=== PATIENT | male | born 1955 | race Caucasian/White ===

== ENCOUNTER → 2024-07-20 09:53 | Outpatient (REF) | payer OTHER, SELFPAY | LOC: RAD 09:53 | PROVIDERS: ATTENDING PHYSICIAN Family Medicine | DX: M25.561 Pain in right knee (principal) | CPT/HCPCS: 73564 ==

== ENCOUNTER → 2024-08-01 12:41 | Outpatient (REF) | payer OTHER, SELFPAY | LOC: RAD 12:41 | PROVIDERS: ATTENDING PHYSICIAN Nurse Practitioner Adult Health; FAMILY PHYSICIAN Family Medicine | DX: R05.2 Subacute cough (principal); R06.02 Shortness of breath | CPT/HCPCS: 71046 ==

== ENCOUNTER → 2024-08-10 14:34 | Outpatient (REF) | payer OTHER, SELFPAY | LOC: HWRCS 14:34 | PROVIDERS: ATTENDING PHYSICIAN Internal Medicine; FAMILY PHYSICIAN Family Medicine | DX: R06.09 Other forms of dyspnea (principal) | CPT/HCPCS: 93306 ==

== ENCOUNTER → 2024-08-31 09:22 | Outpatient (REF) | payer OTHER, SELFPAY | LOC: HWRAD 09:22 | PROVIDERS: ATTENDING PHYSICIAN Internal Medicine Critical Care Medicine; FAMILY PHYSICIAN Family Medicine | DX: J98.4 Other disorders of lung (principal) | CPT/HCPCS: 71250 ==

== ENCOUNTER → 2024-10-07 06:17 | Day surgery (SDC) | payer OTHER, SELFPAY | LOC: GI 06:17 | PROVIDERS: ATTENDING PHYSICIAN Specialist | DX: Z12.11 Encounter for screening for malignant neoplasm of colon (principal); D12.0 Benign neoplasm of cecum; K63.5 Polyp of colon; Z86.0101 Personal history of adenomatous and serrated colon polyps | CPT/HCPCS: 45385; 45380; 88305 ==

== ENCOUNTER 2024-12-15 08:41 | Emergency (ER) | payer OTHER, SELFPAY ==
[2024-12-15] VITALS (12 sets, daily range): BP systolic 109–146; BP diastolic 67–84; BMI 34.4
--- NOTE | 2024-12-15 09:20 | ED.GENMED ---
History of Present Illness
General
Chief Complaint: Heart Rate Problem
Source: patient
Exam Limitations: none
Time Seen by Provider: 12/15/24 09:04
History of Present Illness
History of Present Illness:
69-year-old male feels he went into atrial fibrillation this morning at about 6 AM. Some mild heart racing pounding. Some mild shortness of breath with exertion. Had slightly rapid heart rate last night but did not feel like he was in atrial
fibrillation. Patient is faithful with his Eliquis. Minimal symptoms at rest.
Past History
Past History
ED Past Medical History: Arrthythmia (A-fib RVR), Asthma, CAD (s/p PTCA with stent in 2010), HTN, Hypercholesterolemia and Other (Migraine headaches)
ED Past Surgical History: Cardiac (PTCA with stent 2010)
Social History
Tobacco: Non-smoker
Alcohol: Occasional
Personal:
Living: with family
Employment: Employed
Family History
Family History: Other (Noncontributory)
Review of Systems
Review of Systems
All Other Systems: Not applicable
Cardiac: Denies chest pain or syncope
ABD/GI: Denies bloody stools or black stools
Phy Exam
Physical Exam
Physical Exam:
GENERAL: Alert and oriented in no apparent distress
EYE: Orbits normal.
NECK: Supple
ENT: Pharynx without erythema
CARDIAC: Mildly irregular no murmur
LUNGS: Clear breath sounds,normal
ABDOMEN: Soft, without focal tenderness or distention
NEUROLOGICAL: Alert and oriented , grossly non-focal
SKIN: Warm and dry, no rash or lesion, no discoloration, skin intact.
MUSCULOSKELETAL: No edema,no deformity.Good color
PSYCH: Normal and appropriate interaction.
Course
Orders/Labs/Results
Orders:
Orders
12/15/24 08:43
EKG [Electrocardiogram (*1)] Urgent
Reason for Study: Chest Pain
EKG- Treatment ONCE
12/15/24 09:57
Propofol [Diprivan] 20 ml .ROUTE .STK-MED
12/15/24 09:58
Cardiac Monitoring- Treatment ONCE
IV Insert/Care/Rem.- Treatment PRN
12/15/24 10:02
Basic Metabolic Panel Urgent
Complete Blood Count/With Diff Urgent
12/15/24 10:37
Electrocardiogram (*1) Urgent
Reason for Study: Atrial Fibrillation
EKG- Treatment ONCE
Abnormal Lab Results
12/15/24
10:02
Carbon Dioxide 32 H mmol/L
(22-30)
Glucose 109 H mg/dl
(70-99)
12/15/24 10:02
12/15/24 10:02
Vital Signs
Initial and Last Documented VS:
Initial Vital Signs
Temp Pulse Resp BP Pulse Ox
98.1 F 100 16 143/78 97
12/15/24 08:48 12/15/24 08:48 12/15/24 08:48 12/15/24 08:48 12/15/24 08:48
Last Documented Vital Signs
Temp Pulse Resp BP Pulse Ox
97.8 F 62 16 109/73 96
12/15/24 11:15 12/15/24 11:45 12/15/24 11:45 12/15/24 11:30 12/15/24 11:45
Procedures
Moderate Sedation
ASA Risk Score: Class II
Chart and allergies reviewed: Yes
Consent for anesthesia obtained: Yes
Time out completed (validating right patient & procedure): Yes
Moderate Sedation Start Time(when first medication is given): 13:32
History of difficult intubation: No
Airway free of obstruction: Yes
Patient has a gag reflex: Yes
Patient is able to open mouth: Yes
Patient has no dentures: Yes
Patient has no loose teeth: Yes
Medication administered by Provider during Moderate Sedation: IV Propofol (mg)
Total dose administered: 50
Time drug administered: 13:34
Moderate Sedation Procedure End Time: 13:45
Cardioversion
Indication:: Afib
Performed by:: me
Energy Used: 200 joules
Number of attempts: 1
Successful?: Yes
ASA Risk Score: Class II
Any reaction or bad outcome to prior sedation/anesthesia?: No history of a reaction
Sedation level to be attained: moderate
Chart and allergies reviewed: Yes
Patient reassessed prior to sedation: Yes
Time out completed at (validating right patient & procedure): 13:32
History of difficult intubation: No
Airway free of obstruction: Yes
Patient has a gag reflex: Yes
Patient is able to open mouth: Yes
Patient has no dentures: Yes
Patient has no loose teeth: Yes
Medication administered by Provider during Moderate Sedation: IV Propofol (mg)
Total dose administered: 50
Time drug administered: 13:34
Start Time: 13:32
Stop Time: 13:45
MDM/Problems Addressed
Differential Diagnosis Includes:
Patient in a rate controlled atrial fibrillation. Medically stable. Discussed options of continued rate control anticoagulation and follow-up versus cardioversion in the ER. Patient is faithful with his medication. Also confident this has been
less than 48 hours. By history is less than 48 hours. His Apple Watch also confirmed this started this morning. Will let cardiology know. Patient likely will elect CV
*Pulse Oximetry
Patient hypoxic: no
*EKG
Interpretation: abnormal
Comparison EKG: changes noted
Heart Rate: 84
Rate: normal
Rhythm: a-fib
[place]: normal axis
Interval: normal interval
QRS Pattern: normal QRS
Ischemia: non-specific ST changes
*Ammonium Hydroxide Operator Interpretation
Rate: normal
Interpretation: abnormal
Heart Rate: 85
Rhythm: a-fib
*Critical Care Note
Total Time (30-74mins, 75-104mins- exclusive of procedures): 15
Data Reviewed
Review of Other/Old Records Reveals: Labs, Records and Radiology Studies
ED Attending Note
-
Portions of this chart may have been created with voice recognition software.� Occasional wrong word or��sound alike� substitutions may have occurred due to the inherent limitations of voice recognition software.
Discharge Plan
Departure
Patient Disposition: Home (Routine Discharge)
Date of Disposition: 12/15/24
Time of Disposition: 12:09
Patient with high blood pressure during this ER visit?: Yes
Discharge Problem:
Paroxysmal atrial fibrillation
Instructions: Atrial Fibrillation (DC), MODERATE SEDATION ADULT
Prescriptions:
No Action
[id number] [Fiorinal-Codeine #3] 1 EACH capsule
1 ea PO Q4HPRN PRN (Reason: migraines)
pantoprazole 40 MG tablet,delayed release (DR/EC)
40 mg PO DAILY
nitroglycerin 0.4 MG tablet, sublingual
0.4 mg sublingual [id number] PRN (Reason: CP)
albuterol sulfate 1 PUFF HFA aerosol inhaler
2 puff inhalation R Q4HPRN PRN (Reason: osb)
atorvastatin 40 MG tablet
80 mg PO DAILY
metoprolol succinate 50 MG tablet extended release 24 hr
50 mg PO DAILY
aspirin 81 MG tablet,delayed release (DR/EC)
81 mg PO DAILY
acetaminophen [Tylenol Extra Strength] 500 MG tablet
1,000 mg PO HSPRN PRN (Reason: back pain)
hydrochlorothiazide 25 MG tablet
25 mg PO DAILY
valacyclovir 1,000 MG tablet
1,000 mg PO [id number] PRN (Reason: cold sores)
ascorbic acid (vitamin C) [Vitamin C] 500 MG tablet
500 mg PO DAILY
losartan 25 MG tablet
25 mg PO DAILY
zaleplon 5 MG capsule
5 mg PO HSPRN PRN (Reason: sleep)
cholecalciferol (vitamin D3) 2,000 UNITS tablet
3,000 units PO DAILY
apixaban [Eliquis] 5 MG tablet
5 mg PO BID
tobramycin-dexamethasone [TobraDex] 1 APPLIC ointment
1 applic OPHTHALMIC PRN PRN (Reason: eyes)
sulfacetamide sodium-sulfur [Plexion] 57 GM cream
1 applic TP PRN PRN (Reason: psoriasis )
fluticasone furoate [Arnuity Ellipta] 100 MCG blister with device
100 mcg IH DAILY
Clindamycin
1 applic APPLIC DAILYPRN PRN (Reason: psoriasis )
Referrals:
Yury Lindo MD [Family Provider] - Follow up in 2-3 days
Activity Restrictions/Additional Instructions:
Follow-up closely with cardiology
Interventions
Interventions:
*Risk Screen - Suicide Last Done: 12/15/24 08:48
*General Assessment Last Done: 12/15/24 08:48
*Neglect/Abuse Screening Last Done: 12/15/24 08:48
ED- Fall Risk Assessment Last Done: 12/15/24 09:22
*ED COVID-19 Vaccine History Last Done: 12/15/24 08:48
*Nursing Disposition Last Done: 12/15/24 12:18
ED- Cardiac Assessment Last Done: 12/15/24 09:22
ED- Pulmonary Assessment Last Done: 12/15/24 09:22
Discharge Date and Time
Discharge Date/Time: 12/15/24 12:19
Print Language: GIBRALTARIAN
[2024-12-15 10:24] LABS: Blood Urea Nitrogen 17 mg/dl (9-20); Calcium 9.5 mg/dl (8.4-10.2); Carbon Dioxide 32 mmol/L (22-30); Chloride 101 mmol/L (98-107); Estimated Creatinine Clearance 85 ml/min; Glucose 109 mg/dl (70-99); Potassium 3.5 mmol/L (3.5-5.1); Sodium 139 mmol/L (135-145); eGFR > 60.00
[2024-12-15 10:25] LABS: % Basophils 0.4 % (0-2); % Eosinophils 3.1 % (0-6); % Immature Granulocytes 0.3 % (0-0.5); % Lymphocytes 31.1 % (20.5-51.1); % Monocytes 6.7 % (1.7-9.3); % Neutrophils 58.4 % (42.2-75.2); Absolute Eosinophils 0.3 10^3/uL (0-0.7); Absolute Lymphocytes 2.8 10^3/uL (1.2-3.4); Absolute Monocytes 0.6 10^3/uL (0.1-0.6); Absolute Neutrophils 5.2 10^3/uL (1.4-6.5); Hematocrit 44.4 % (39.0-52.0); Hemoglobin 14.8 g/dL (13.0-18.0); Mean Corp Hgb Conc. 33.3 g/dL (33.0-37.0); Mean Corpuscular Hgb 30.6 pg (27.0-31.0); Mean Corpuscular Volume 91.7 fL (80.0-94.0); Mean Platelet Volume 9.4 fL (7.4-10.4); Nucleated Red Blood Cells % 0 % (-); Platelet Count 292 10^3/uL (130-400); Red Blood Cell Count 4.84 10^6/uL (4.70-6.10); Red Cell Dist. Width 12.7 % (11.5-14.5); White Blood Cell Count 8.9 10^3/uL (4.8-10.8)
== END 2024-12-15 12:19 | disposition home or self-care (01) ==
LOC: EMR 08:41
PROVIDERS: EMERGENCY PHYSICIAN Emergency Medicine; FAMILY PHYSICIAN Family Medicine
DX: I48.0 Paroxysmal atrial fibrillation (principal); J45.909 Unspecified asthma, uncomplicated; I25.10 Atherosclerotic heart disease of native coronary artery without angina pectoris; I10 Essential (primary) hypertension; E78.00 Pure hypercholesterolemia, unspecified; Z79.01 Long term (current) use of anticoagulants; Z95.5 Presence of coronary angioplasty implant and graft
CPT/HCPCS: 99284; 92960; 80048; 85025; 93005

== ENCOUNTER 2025-01-19 05:54 | Day surgery (SDC) | payer OTHER, SELFPAY ==
[2025-01-17 13:13] VITALS: BMI 33.8
[2025-01-17 13:46] LABS: % Basophils 0.5 % (0-2); % Eosinophils 4.5 % (0-6); % Immature Granulocytes 0.1 % (0-0.5); % Lymphocytes 33.3 % (20.5-51.1); % Monocytes 6.2 % (1.7-9.3); % Neutrophils 55.4 % (42.2-75.2); Absolute Eosinophils 0.3 10^3/uL (0-0.7); Absolute Lymphocytes 2.5 10^3/uL (1.2-3.4); Absolute Monocytes 0.5 10^3/uL (0.1-0.6); Absolute Neutrophils 4.1 10^3/uL (1.4-6.5); Hematocrit 43.5 % (39.0-52.0); Hemoglobin 14.8 g/dL (13.0-18.0); Mean Corpuscular Hgb 30.7 pg (27.0-31.0); Mean Corpuscular Volume 90.2 fL (80.0-94.0); Mean Platelet Volume 8.9 fL (7.4-10.4); Nucleated Red Blood Cells % 0 % (-); Platelet Count 230 10^3/uL (130-400); Red Blood Cell Count 4.82 10^6/uL (4.70-6.10); Red Cell Dist. Width 13.2 % (11.5-14.5); White Blood Cell Count 7.4 10^3/uL (4.8-10.8)
[2025-01-17 14:06] LABS: ALT (SGPT) 41 U/L (0-50); AST (SGOT) 31 U/L (17-59); Albumin 4.2 g/dl (3.5-5.0); Alkaline Phosphatase 133 U/L (38-126); Blood Urea Nitrogen 18 mg/dl (9-20); Calcium 9.7 mg/dl (8.4-10.2); Carbon Dioxide 34 mmol/L (22-30); Chloride 103 mmol/L (98-107); Estimated Creatinine Clearance 103 ml/min; Glucose 125 mg/dl (70-99); Potassium 3.6 mmol/L (3.5-5.1); Sodium 142 mmol/L (135-145); Total Bilirubin 0.8 mg/dl (0.2-1.3); Total Protein 6.9 g/dl (6.3-8.2); eGFR > 60.00
[2025-01-19] VITALS (23 sets, daily range): BP systolic 109–147; BP diastolic 61–89; BMI 33.7
[2025-01-19 08:52] LABS: ACT-LR - POC 300 Seconds (116-155)
[2025-01-19 09:13] LABS: ACT-LR - POC 322 Seconds (116-155)
[2025-01-19 09:37] LABS: ACT-LR - POC 366 Seconds (116-155)
--- NOTE | 2025-01-19 10:06 | ITS.CL.ABL ---
Security Attendant - Ablation
Ablation
Procedure Report:
AFIB ablation:
Mr. Thomas is a very pleasant 69 yr old gentleman with symptomatic paroxysmal AF is recommended for atrial fibrillation ablation.
Date of the Procedure:
01/19/2025
Indications:
Paroxysmal atrial fibrillation
Pre-Operative Diagnosis:
Paroxysmal atrial fibrillation
Post-Operative Diagnosis:
Paroxysmal atrial fibrillation
Procedure Performed:
Atrial fibrillation ablation with Pulsed-Field approach for pulmonary vein isolation
Performing Physician:
Charli Martell MD
Assistants:
EP staff
Anesthesia:
See anesthesia records
Detailed Description of the Procedure:
Written informed consent was obtained from the patient after a full explanation of the risks and benefits of the procedure including the risks of sedation and anesthesia.
The patient was brought to the electrophysiology laboratory in stable condition in fasting state. Continuous electrocardiographic and hemodynamic monitoring was initiated.
The initial rhythm was sinus rhythm.
The procedure site was meticulously prepared with surgical scrub and allowed to dry with no pooling. Sterile draping was applied to cover the procedure site. The image intensifier was draped with sterile bag and positioned over the patient. After
infusion of local anesthetic, vascular access was obtained under ultrasound guidance and sheaths were placed over guide wire as detailed below.
Sheath and Catheter Placement:
The following catheters / sheaths were placed
Sheaths:
��������� 17Fr steerable sheath (Faradrive�, [employer]) in right femoral
��������� 9Fr in right femoral vein
Catheters:
��������� CARTO Pentaray mapping catheter � at locations of RA, LA
��������� Farawave� PFA catheter
��������� ICE catheter -AcuNav - at locations of RA, SVC, and RV.
Intracardiac ECHO:
An 8-[place]ic AcuNav intracardiac ECHO (ICE) probe was advanced through the 9-[place] sheath in the right femoral vein into the right atrium under fluoroscopic and ICE ultrasound image guidance and a baseline ECHO study was performed. The left atrial
size was dilated. There was moderate tricuspid regurgitation. The aortic valve was grossly normal. There was normal left ventricular systolic functions. There is no significant pericardial effusion. All the four veins were identified and has flow
identified. There was good flow noted in the SHANNON.
During the procedure, ICE was used for monitoring of complications, guidance of trans-septal puncture, monitor the catheter position and tracking ablation lesions. No change in the pericardial space noted throughout the procedure.
Trans-septal Puncture:
Heparin was initiated and infused to maintain appropriate ACT. A pigtail guidewire was advanced through the 8-Green[place]ic sheath in the right femoral vein into the superior vena cava under fluoroscopic and ICE guidance. The 9-[place]ic sheath was exchanged
for a Faradrive sheath which was advanced into the superior vena cava. A transseptal VersaCross RF pigtail via Faradrive connect system was utilized to perform the trans-septal puncture. The apparatus was withdrawn until it was in contact with the
fossa ovalis. The position was adjusted based on fluoroscopy and ultrasound images from ICE. Under fluoroscopic, hemodynamic and ICE ultrasound guidance, left atrium was cannulated by applying RF energy. Once atrial septum was cannulated, the
pigtail wire was advanced into the left atrium. The guide wire was advanced into the left superior pulmonary vein. Both the sheath and the dilator was advanced into the left atrium. The dilator was withdrawn. Blood was aspirated from the Faradrive
sheath and arterial blood confirmed. The sheath was flushed. Saline injection noted into the left atrium on ICE. The mapping catheter was advanced in the sheath into the left pulmonary vein. Left atrial pressure was measured.
3D Electroanatomic Mapping:
Using the Pentaray catheter advanced through sheath into the left atrium, an electroanatomic map (EAM) of the left atrium was created using CARTO mapping system. The map was used for localization of catheter position and tacking of ablation lesions.
The EAM of the left atrium showed 4 pulmonary veins with all 4 veins electrically connected to the body the LA. It showed normal voltage in the LA in sinus rhythm. The LA was dilated in size.
Following the EAM, preparation were made for ablation.
Ablation:
Ablation # 1: Pulmonary vein Isolation:
Glycopyrrolate 0.2 mg was given prior to the placement of ablation. Using Farawave pulsed field ablation system, pulmonary vein isolation was achieved. First the ablation catheter was placed in the LSPV and ostial ablation lesions were performed in
an �[place]� formation of the Farawave configuration and a counter clock pablo rotation was done and ablated to cover the area between the electrodes. Then the catheter was placed on the antral location in �[place]� configuration and multiple ablation
lesions were placed circumferentially on the antrum of the vein.
In the similar fashion, the LIPV were isolated.
Then the catheter was moved to right sided veins. The ostial and antral ablations were placed as noted above.
Patient went into atrial fibrillation with catheter manipulation inside the left atrium.
With PVI, patient remained in atrial fibrillation.
Cardioversion:
Once the PV isolation was achieved, decision was made to proceed with cardioversion. A 200 J biphasic shock was applied on the jose r posterior Zoll patches and sinus rhythm was achieved. No significant pause noted.
EPS and Confirmation of the PVI and bidirectional block:
Following achievement of entrance block at the pulmonary veins, pacing from the HD catheter in each of the four veins at 10 milliamps for 2 milliseconds showed entrance and exit block. All PVI were rechecked at the end of the case and remained
isolated. Entrance and exit block were demonstrated in all veins.
Post ablation Electroanatomic mapping:
Once ablation was completed, the EAM of the LA was done again in sinus rhythm with excellent demarcation of LA myocardium and isolated antral tissue. There was no scar noted.
The SHANNON had healthy signals and was not isolated.
Procedure End
ICE study was done again that showed no epicardial accumulation. No complications noted.
Following the completion of the EP study, catheters were removed. Protamine 40 mg was given at the end of the procedure and ACT was checked repeatedly.
The 17 Fr sheath was downgraded to 10Fr and manual pressure applied. The sheaths were removed and hemostasis achieved with �Figure of 8 suture� and manual compression after acceptable ACT is achieved.
Left atrial Pressure:
Mean LA pressure was 12mmHg
Mean RA pressure was 7 mmHg.
Estimated Blood loss:
<10 cc
Specimens Removed:
None.
Implants / Devices:
None
Urine output:
None
Packs / Drains/ Tubes:
None
Instrument / Sponge Count Correct:
Yes
Complications of the Procedure:
None
Condition of Patient at Time of Transfer:
Hemodynamically stable with no neurological or vascular compromise.
Summary:
Successful atrial fibrillation ablation with Pulsed Field approach for pulmonary vein isolation.
Figures from the Procedure:
Figure 1: The electroanatomic mapping (EAM) of the left atrium with bipolar voltage (purple indicates normal electrical activity with mckeon as no myocardial muscle electric activity indicating a line of block or scar.
--- NOTE | 2025-01-19 10:46 | PTCARENOTE ---
Dr Martell at pt bedside speaking to pt.
--- NOTE | 2025-01-19 14:47 | W.PN.UPDATE ---
Update Note
Progress Note Update
69 yo WM s/p PVI (Same day). He denies cp, sob, elizabeth diet, voiding, amb w/o dizziness, EKG SR 1deg AVB, R fem site c/d/i no HT, soft. He will resume Eliquis tonight. He will continue metoprolol. Activity restrictions reviewed. He will f/u [facility] in 2
weeks. He is for d/c home after 3pm if groin stable.
== END 2025-01-19 15:03 | disposition home or self-care (01) ==
LOC: CATH 05:54
PROVIDERS: ATTENDING PHYSICIAN Internal Medicine Cardiovascular Disease; FAMILY PHYSICIAN Family Medicine; OTHER PHYSICIAN Internal Medicine
DX: I48.0 Paroxysmal atrial fibrillation (principal); J45.909 Unspecified asthma, uncomplicated; Z79.899 Other long term (current) drug therapy; Z79.82 Long term (current) use of aspirin; Z79.01 Long term (current) use of anticoagulants
CPT/HCPCS: C1769; C1894; C1892; C1759; 36415; 80053; 85025; 85347; 86850; 86900; 86901; 93005; 93656; 93657; C1733; C1766

== ENCOUNTER 2025-04-30 16:14 | Emergency (ER) | payer OTHER, SELFPAY ==
[2025-04-30] VITALS (10 sets, daily range): BP systolic 117–153; BP diastolic 71–90; BMI 34.0
[2025-04-30 16:54] LABS: Hematocrit 42.0 % (39.0-52.0); Hemoglobin 14.3 g/dL (13.0-18.0); Mean Corp Hgb Conc. 34.0 g/dL (33.0-37.0); Mean Corpuscular Volume 91.7 fL (80.0-94.0); Nucleated Red Blood Cells % 0 % (-); Platelet Count 268 10^3/uL (130-400); Red Cell Dist. Width 13.2 % (11.5-14.5)
[2025-04-30 17:05] LABS: INR 1.00; PT 13.5 Sec (11.4-14.6)
[2025-04-30 17:13] LABS: ALT (SGPT) 34 U/L (0-50); AST (SGOT) 26 U/L (17-59); Albumin 4.1 g/dl (3.5-5.0); Alkaline Phosphatase 142 U/L (38-126); Blood Urea Nitrogen 20 mg/dl (9-20); Calcium 9.5 mg/dl (8.4-10.2); Carbon Dioxide 27 mmol/L (22-30); Chloride 105 mmol/L (98-107); Glucose 93 mg/dl (70-99); Potassium 3.9 mmol/L (3.5-5.1); Sodium 137 mmol/L (135-145); Total Protein 6.7 g/dl (6.3-8.2); eGFR > 60.00
[2025-04-30 17:25] LABS: Troponin I < 0.012 ng/ml
--- NOTE | 2025-04-30 19:43 | ED.GENMED ---
History of Present Illness
General
Chief Complaint: Heart Rate Problem
Source: patient
Exam Limitations: none
Time Seen by Provider: 04/30/25 19:28
History of Present Illness
History of Present Illness:
Patient went into atrial fibrillation about 2 days ago. Heart rate would go up to the 120s. Took an extra metoprolol this morning. His maternal child nurse told him if it did not resolve in 6 hours to go to the ER for cardioversion. No significant
symptoms except for some palpitations mild lightheadedness no chest pain shortness of breath or syncope. He is absolutely faithful with his Eliquis. He had a previous ablation and has had previous cardioversions
Past History
Past History
ED Past Medical History: Arrthythmia (A-fib RVR), Asthma, CAD (s/p PTCA with stent in 2010), HTN, Hypercholesterolemia and Other (Migraine headaches)
ED Past Surgical History: Cardiac (PTCA with stent 2010)
Social History
Tobacco: Non-smoker
Alcohol: Occasional
Personal:
Living: with family
Employment: Employed
Family History
Family History: Other (Noncontributory)
Review of Systems
Review of Systems
All Other Systems: Not applicable
Cardiac: Denies chest pain or syncope
Phy Exam
Physical Exam
Physical Exam:
GENERAL: Alert and oriented in no apparent distress
EYE: Orbits normal.
NECK: Supple, no significant adenopathy.
ENT: Pharynx without erythema. No false teeth. Airway clear
CARDIAC: Mildly irregular no murmur
LUNGS: Clear breath sounds,normal
ABDOMEN: Soft, without focal tenderness or distention
NEUROLOGICAL: Alert and oriented , grossly non-focal
SKIN: Warm and dry, no rash or lesion, no discoloration, skin intact.
MUSCULOSKELETAL: No edema,no deformity.Good color
PSYCH: Normal and appropriate interaction.
Course
Orders/Labs/Results
Orders:
Orders
04/30/25 16:23
Electrocardiogram (*1) Urgent
Reason for Study: Chest Pain
EKG- Treatment ONCE
04/30/25 16:37
Complete Blood Count/With Diff Urgent
Comprehensive Metabolic Panel Urgent
Prothrombin Time Urgent
Troponin I Urgent
04/30/25 19:54
Propofol [Diprivan] 20 ml .ROUTE .STK-MED
04/30/25 20:02
EKG [Electrocardiogram (*1)] Urgent
Reason for Study: Abnormal EKG
EKG- Treatment ONCE
Abnormal Lab Results
04/30/25
16:37
WBC 12.5 H 10^3/uL
(4.8-10.8)
RBC 4.58 L 10^6/uL
(4.70-6.10)
MCH 31.2 H pg
(27.0-31.0)
Abs Immat Gran (auto) 0.1 H 10^3/uL
(0-0.05)
Absolute Neuts (auto) 7.8 H 10^3/uL
(1.4-6.5)
Absolute Monos (auto) 0.9 H 10^3/uL
(0.1-0.6)
Immature Gran % 0.6 H %
(0-0.5)
Alkaline Phosphatase 142 H U/L
(38-126)
04/30/25 16:37
04/30/25 16:37
Vital Signs
Initial and Last Documented VS:
Initial Vital Signs
Temp Pulse Resp BP Pulse Ox
98.4 F 60 22 129/78 97
04/30/25 16:21 04/30/25 16:21 04/30/25 16:21 04/30/25 16:21 04/30/25 16:21
Last Documented Vital Signs
Temp Pulse Resp BP Pulse Ox
98.2 F 61 17 117/71 96
04/30/25 19:55 04/30/25 20:37 04/30/25 20:37 04/30/25 20:37 04/30/25 20:37
Procedures
Cardioversion
Indication:: Afib
Performed by:: myself
Synchronized?: Yes
Energy Used: 200 joules
Number of attempts: 1
Successful?: Yes
ASA Risk Score: Class II
Any reaction or bad outcome to prior sedation/anesthesia?: No history of a reaction
Sedation level to be attained: moderate
Chart and allergies reviewed: Yes
Patient reassessed prior to sedation: Yes
Time out completed at (validating right patient & procedure): 19:56
History of difficult intubation: No
Airway free of obstruction: Yes
Patient has a gag reflex: Yes
Patient is able to open mouth: Yes
Patient has no dentures: Yes
Patient has no loose teeth: Yes
Medication administered by Provider during Moderate Sedation: IV Propofol (mg)
Total dose administered: 50
Time drug administered: 19:56
Start Time: 19:56
Stop Time: 20:08
MDM/Problems Addressed
Differential Diagnosis Includes:
Discussed options with patient of continued observation and a relatively rate controlled atrial fibrillation. He did state his heart rate would go up to the 120s and 130s. Or cardioversion. Risk of cardioversion including lack of success,
proarrhythmic concerns and sedation concerns all explained. I did review all this with patient's maternal child nurse who recommended cardioversion. Patient is good with this. Again it was stressed that he is on his Eliquis and faithful
*Pulse Oximetry
SaO2: 97
Oxygen Mode of Delivery: Room air
Patient hypoxic: no
*EKG
Interpreted by ED Provider?: Yes
Interpretation: abnormal
Comparison EKG: changes noted
Heart Rate: 74
Rate: normal
Rhythm: a-fib
[place]: normal axis
Interval: normal interval
QRS Pattern: normal QRS
Ischemia: non-specific ST changes
*Human Machine Interface Engineer Interpretation
Rate: normal
Interpretation: abnormal
Heart Rate: 66
Rhythm: a-fib
*Critical Care Note
Total Time (30-74mins, 75-104mins- exclusive of procedures): Not Applicable
Data Reviewed
Review of Other/Old Records Reveals: Labs, Records and Operative Reports (Previous cardioversions)
Update Note
Update Note:
Patient has remained stable and nontoxic. Normal sinus rhythm. Discharged to follow-up. Repeat EKG sinus rhythm at 64 first-degree block. Left axis deviation. No other acute changes.
ED Attending Note
-
Portions of this chart may have been created with voice recognition software.� Occasional wrong word or��sound alike� substitutions may have occurred due to the inherent limitations of voice recognition software.
Discharge Plan
Departure
Patient Disposition: Home (Routine Discharge)
Date of Disposition: 04/30/25
Time of Disposition: 21:12
Patient with high blood pressure during this ER visit?: No
Discharge Problem:
Paroxysmal atrial fibrillation
Instructions: Atrial Fibrillation (DC), MODERATE SEDATION ADULT
Prescriptions:
No Action
pantoprazole 40 MG tablet,delayed release (DR/EC)
40 mg PO DAILY
aspirin 81 MG tablet,delayed release (DR/EC)
81 mg PO DAILY
acetaminophen [Tylenol Extra Strength] 500 MG tablet
1,000 mg PO Q8HPRN PRN (Reason: pain)
hydrochlorothiazide 25 MG tablet
25 mg PO DAILY
valacyclovir 1,000 MG tablet
1,000 mg PO [id number] PRN (Reason: cold sores)
losartan 25 MG tablet
25 mg PO DAILY
Eliquis 5 MG tablet
5 mg PO BID
TobraDex 1 APPLIC ointment
1 applic OPHTHALMIC PRN PRN (Reason: eyes)
atorvastatin 80 mg Tablet
80 mg PO DAILY
metoprolol succinate 50 mg Tablet Extended Release 24 Hr
50 mg PO DAILY
allopurinol 100 mg Tablet
100 mg PO DAILY
albuterol sulfate 90 mcg/actuation Hfa Aerosol Inhaler
2 puff INHALATION 6XD PRN (Reason: SOB)
sertraline 50 mg Tablet
50 mg PO DAILY
Pulmicort Flexhaler 180 mcg/actuation Aerosol Powdr Breath Activated
1 inh INHALATION BID
[id number]-[id number]-caff 51-62-871-40 mg Capsule
1 cap PO Q4H PRN (Reason: migraine)
Referrals:
UNKNOWN - PT DOES,NOT KNOW [Family Provider]
Activity Restrictions/Additional Instructions:
Call your maternal child nurse tomorrow for close follow-up
Interventions
Interventions:
*Risk Screen - Suicide Last Done: 04/30/25 16:21
*General Assessment Last Done: 04/30/25 16:21
*Neglect/Abuse Screening Last Done: 04/30/25 16:21
*ED- Fall Risk Assessment Last Done: 04/30/25 19:14
*ED COVID-19 Vaccine History Last Done: 04/30/25 19:14
ED- Cardiac Assessment Last Done: 04/30/25 19:14
ED- Pulmonary Assessment Last Done: 04/30/25 19:14
Discharge Date and Time
Print Language: ITALIAN
== END 2025-04-30 21:40 | disposition home or self-care (01) ==
LOC: EMR 16:14
PROVIDERS: Emergency Medicine; EMERGENCY PHYSICIAN Emergency Medicine
DX: I48.0 Paroxysmal atrial fibrillation (principal); J45.909 Unspecified asthma, uncomplicated; E78.00 Pure hypercholesterolemia, unspecified; I10 Essential (primary) hypertension; I25.10 Atherosclerotic heart disease of native coronary artery without angina pectoris; Z95.5 Presence of coronary angioplasty implant and graft
CPT/HCPCS: 99284; 92960; 80053; 84484; 85025; 85610; 93005

== ENCOUNTER 2025-05-15 07:58 | Inpatient (IN) | payer OTHER, SELFPAY ==
[2025-05-15 08:23] VITALS: BP 125/75
--- NOTE | 2025-05-15 08:24 | W.PN.CD ---
Addendum entered and electronically signed by Wong Houser MD 05/15/25 10:12:
I saw and examined the patient.
The BUG TRIMMER's note was reviewed and I agree with the note.
Comment:
69-year-old man with coronary artery disease, paroxysmal atrial fibrillation on Eliquis, hypertension, hyperlipidemia, obesity, and JERMAINE/asthma who presents for dofetilide loading. He is asymptomatic.
Physical exam with RRR, clear lungs, no lower extremity edema.
ECG 05/15/2025: NSR, QTc 400 ms
Dofetilide per protocol. Continue Eliquis for anticoagulation. Stop HCTZ and trend blood pressures.
Original Note:
Today's Communication / Plan
-
*This is the H&P summary. Please see scanned H&P*
Obtain EKG and BMP.
Dofetilide loading per protocol.
Stop HCTZ.
Impression / Plan
-
I/P: 69M with oronary artery disease status-post BMS to the proximal RCA and proximal LAD (2010), paroxysmal atrial fibrillation (on Eliquis) status-post previous BETTY/cardioversions (on 02/24/2019, 09/05/2021, & 12/15/2024), ablation (01/19/2025),
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
Primary material manager: Dr. Avina
Paroxysmal atrial fibrillation
- In sinus rhythm
- Plan is for rhythm control with dofetilide, baseline QT 400 msec, this requires intensive monitoring
- Dofetilide loading per protocol
- He took HCTZ this morning, discussed with EP, we will permanently discontinue
- Oral Anticoagulation: Apixaban 5 mg twice daily, he denies missed doses, he denies abnormal bleeding
- [id number]: Score at least 3 (HTN, Vascular disease, age 65-74)
CAD
-Stable without chest pain
-Continue medical management with aspirin, atorvastatin, and metoprolol succinate
Essential hypertension
- HCTZ permanently discontinued with the addition of dofetilide
- Follow BP, may need to increase losartan
Hyperlipidemia, continue atorvastatin 80 mg
Asthma, stable without wheeze, no acute exacerbation
JERMAINE on CPAP
Physical Exam
Physical Exam
Constitutional: No acute distress and Comfortable
EENT: Anicteric and Moist mucous membranes
Cardiovascular: Rhythm & rate is regular, Pedal edema is absent and S1S2 is normal
Respiratory: Respiratory effort normal and Lungs clear to auscul.
GI: Soft, Distention absent, Flat, Non tender and Normal bowel sounds
Neuro/Psych: AO x 3
Other: Skin (warm and dry)
Data Reviewed
-
Date of Service: May 15, 2025
EKG: Ordered by me
Labs: Labs Ordered by me
Old Records: Reviewed
--- NOTE | 2025-05-15 08:25 | PTCARENOTE ---
Received pt as direct admission for Tikosyn load. VSS, monitor showing NSR. Denies pain or discomfort at present. Independent in room. Call newman in reach.
--- NOTE | 2025-05-15 08:28 | W.CARD.TIKOS ---
Initiate Tikosyn
-
I verify that the patient has not taken any verapamil (Isoptin/Calan), ketoconazole (Nizoral), cimetidine (Tagamet), trimethoprim (Trimpex), trimethoprim/sulfamethoxazole (Bactrim), megesterol (Megace), prochlorperazine (Compazine), dolutegravir
(Tivicay) or any Class I or Class III anti-arrhythmic within the last three days
AND
I verify that the patient has not taken amiodarone within the last THREE months, or that the patient's amiodarone plasma concentration is <0.3 mcg/mL.
Does patient have a Ventricular Conduction Abnormality: No
I have assessed the baseline QTc interval (using QT for heart rate less than 60 bpm) and deemed the patient is appropriate for Dofetilide therapy. I understand that Tikosyn is contraindicated if the QTc is >440msec (500msec in patients with
ventricular conduction abnormalities).
Baseline QTc (in msec): 400
QTc interval is greater than 440msec without conduction abnormality OR greater than 500msec with a conduction abnormality, but acceptable to proceed per Cardiology attending.
Ordering Physician: Rai Avina
[2025-05-15 08:32] VITALS: BMI 33.9
[2025-05-15 08:50] LABS: Blood Urea Nitrogen 24 mg/dl (9-20); Calcium 9.5 mg/dl (8.4-10.2); Carbon Dioxide 28 mmol/L (22-30); Chloride 106 mmol/L (98-107); Estimated Creatinine Clearance 116 ml/min; Glucose 95 mg/dl (70-99); Potassium 3.5 mmol/L (3.5-5.1); Sodium 139 mmol/L (135-145); eGFR > 60.00
[2025-05-15] MEDS: TIKOSYN 500 MCG PO (09:27)
[2025-05-15 10:38] VITALS: BMI 33.9
[2025-05-15 11:26] VITALS: BP 139/79
--- NOTE | 2025-05-15 11:40 | CM ---
Chart reviewed. Patient is independent of ADLS, lives with his spouse in a [address], 2 MANNY, 0 DME. Patient being loaded on Tikosyn. CM to chau and check availability closer to discharge based on dosing. Patient will need 3 day supply to go to
home. Plan is for the patient to return home. CM to follow
[2025-05-15] MEDS: TYLENOL 1000 MG PO (15:14)
[2025-05-15 15:57] VITALS: BP 138/79
[2025-05-15 19:12] VITALS: BP 144/71
[2025-05-15] MEDS: FLOVENT 44 MCG INHALER 2 PUFF INH (19:52)
[2025-05-15] MEDS: ELIQUIS 5 MG PO (20:02)
[2025-05-15] MEDS: TIKOSYN 250 MCG PO (20:02)
[2025-05-15 22:07] VITALS: BP 133/69
[2025-05-16] VITALS (7 sets, daily range): BP systolic 124–142; BP diastolic 64–76
--- NOTE | 2025-05-16 05:18 | PTCARENOTE ---
Pt SB on monitor, VSS. 2nd dose of Tikosyn given. QTC 441. Pt denies any discomfort this shift.
[2025-05-16] MEDS: FLOVENT 44 MCG INHALER 2 PUFF INH ×2 (07:52→19:33)
[2025-05-16] MEDS: COZAAR 25 MG PO (07:55)
[2025-05-16] MEDS: LIPITOR 80 MG PO (07:55)
[2025-05-16] MEDS: PROTONIX 40 MG PO (07:55)
[2025-05-16] MEDS: TOPROL XL 50 MG PO (07:55)
[2025-05-16] MEDS: TIKOSYN 250 MCG PO ×2 (07:55→19:40)
[2025-05-16] MEDS: ELIQUIS 5 MG PO ×2 (07:55→19:40)
[2025-05-16] MEDS: ZYLOPRIM 100 MG PO (07:55)
[2025-05-16] MEDS: ZOLOFT 50 MG PO (07:55)
--- NOTE | 2025-05-16 09:29 | W.PN.CD ---
Today's Communication / Plan
-
Continue dofetilide
Impression / Plan
-
I/P: 69M with oronary artery disease status-post BMS to the proximal RCA and proximal LAD (2010), paroxysmal atrial fibrillation (on Eliquis) status-post previous BETTY/cardioversions (on 02/24/2019, 09/05/2021, & 12/15/2024), ablation (01/19/2025),
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
Primary coal trimmer: Dr. Avina
Paroxysmal atrial fibrillation
- In sinus rhythm
- Plan is for rhythm control with dofetilide, baseline QT 400 msec, this requires intensive monitoring
- Dofetilide loading per protocol. Now down to 250 mcg BID with stable QTc
- Oral Anticoagulation: Apixaban 5 mg twice daily, he denies missed doses, he denies abnormal bleeding
- [id number]: Score at least 3 (HTN, Vascular disease, age 65-74)
CAD
-Stable without chest pain
-Continue medical management with aspirin, atorvastatin, and metoprolol succinate
Essential hypertension
- HCTZ permanently discontinued with the addition of dofetilide
- Follow BP, may need to increase losartan
Hyperlipidemia, continue atorvastatin 80 mg
Asthma, stable without wheeze, no acute exacerbation
JERMAINE on CPAP
Subjective: No CV complaints
Physical Exam
Vital Signs/Labs
Vital Signs
Temp Pulse Resp BP Pulse Ox
98.3 F 57 18 124/76 96
05/16/25 07:53 05/16/25 09:15 05/16/25 07:55 05/16/25 07:55 05/16/25 07:55
07/21/25 07/22/25 07/23/25
06:59 06:59 06:59
Actual Weight 249 lb 9.012 oz
05/15/25 08:25
Physical Exam
Constitutional: No acute distress and Comfortable
Cardiovascular: Rhythm & rate is regular, Pedal edema is absent, S1S2 is normal and Murmur/rub/gallop absent
Respiratory: Respiratory effort normal and Lungs clear to auscul.
Neuro/Psych: AO x 3
Data Reviewed
-
Date of Service: May 16, 2025
Medical Decision Making: Reviewed Test Results, Independent Historian Assessment, Test Interpretation and Review of Case with other Provider
EKG: Tracing Personally Visualized and interpreted
Echo: Report Reviewed by me
Labs: Labs Reviewed by me
--- NOTE | 2025-05-16 10:26 | CM ---
Pricing on Dofetilide through the patient's [employer] [facility], ID# [id number], is $157 and needs a prior authorization. Pricing through [facility] is $28. I gave the patient [facility] coupon.
[2025-05-16] MEDS: TYLENOL 1000 MG PO (19:48)
--- NOTE | 2025-05-17 00:30 | PTCARENOTE ---
4th dose of Tikosyn administered at 19:40. EKG obtained 2hrs post per protocol. QTC level 414. Pt remains Sinus aida-NSR. HR in the 40-60's at rest. Pt c/o 'stiff neck' discomfort, PRN Tylenol administered at 19:48. POC ongoing, call newman within
reach.
[2025-05-17 04:17] VITALS: BP 133/71
[2025-05-17] MEDS: TYLENOL 1000 MG PO (04:20)
[2025-05-17 07:28] VITALS: BP 129/77
[2025-05-17] MEDS: FLOVENT 44 MCG INHALER 2 PUFF INH ×2 (07:50→20:01)
[2025-05-17] MEDS: ELIQUIS 5 MG PO ×2 (08:28→19:15)
[2025-05-17] MEDS: COZAAR 25 MG PO (08:28)
[2025-05-17] MEDS: TIKOSYN 250 MCG PO ×2 (08:28→19:15)
[2025-05-17] MEDS: TOPROL XL 50 MG PO (08:28)
[2025-05-17] MEDS: PROTONIX 40 MG PO (08:28)
[2025-05-17] MEDS: LIPITOR 80 MG PO (08:28)
[2025-05-17] MEDS: ZYLOPRIM 100 MG PO (08:28)
[2025-05-17] MEDS: ZOLOFT 50 MG PO (08:28)
[2025-05-17] MEDS: LOW STRENGTH ASPIRIN 81 MG PO (09:00)
--- NOTE | 2025-05-17 09:14 | W.PN.CD ---
Today's Communication / Plan
-
- Loading Tikosyn dose.
- QTc is acceptable.
Impression / Plan
-
I/P: 69M with oronary artery disease status-post BMS to the proximal RCA and proximal LAD (2010), paroxysmal atrial fibrillation (on Eliquis) status-post previous BETTY/cardioversions (on 02/24/2019, 09/05/2021, & 12/15/2024), ablation (01/19/2025),
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
Primary radiation protection specialist: Dr. Avina
Paroxysmal atrial fibrillation
- s/p AF ablation - PVI - 01/19/25. No significant scar in the LA.
- In sinus rhythm
- Plan is for rhythm control with dofetilide, baseline QT 400 msec, this requires intensive monitoring
- Dofetilide loading per protocol. Now down to 250 mcg BID with stable QTc
- Oral Anticoagulation: Apixaban 5 mg twice daily, he denies missed doses, he denies abnormal bleeding
- [id number]: Score at least 3 (HTN, Vascular disease, age 65-74)
- s/p 4/6 doses of Tikosyn.
- QTc is acceptable. Continue to load.
CAD
-Stable without chest pain
-Continue medical management with aspirin, atorvastatin, and metoprolol succinate
Essential hypertension
- HCTZ permanently discontinued with the addition of dofetilide
- BP is at target
Hyperlipidemia, continue atorvastatin 80 mg
Asthma, stable without wheeze, no acute exacerbation
JERMAINE on CPAP
Subjective: No CV complaints
Physical Exam
Vital Signs/Labs
Vital Signs
Temp Pulse Resp BP Pulse Ox
97.7 F 59 16 129/77 95
05/17/25 07:28 05/17/25 09:00 05/17/25 07:52 05/17/25 07:28 05/17/25 07:52
05/16/25 05/17/25 05/18/25
06:59 06:59 06:59
Actual Weight 113.2 kg
05/15/25 08:25
Physical Exam
Constitutional: No acute distress and Comfortable
EENT: Anicteric and Moist mucous membranes
Cardiovascular: Rhythm & rate is regular, Pedal edema is absent, JVD pressure is normal and Systolic murmur absent
Respiratory: Respiratory effort normal, Lungs clear to auscul. and Wheeze Absent
GI: Soft, Non tender and Normal bowel sounds
Neuro/Psych: Alert, Oriented and AO x 3
Data Reviewed
-
Date of Service: May 17, 2025
Medical Decision Making: Reviewed Test Results, Test Interpretation and Review of Case with other Provider
EKG: Tracing Personally Visualized and interpreted
Echo: Report Reviewed by me
Labs: Labs Reviewed by me
Old Records: Reviewed
[2025-05-17 10:32] VITALS: BP 149/79
--- NOTE | 2025-05-17 13:32 | CM ---
Chart reviewed. Patient is independent of ADLS, lives with his spouse in a 1 STH, 2 MANNY, 0 DME. Patient will need 3 day supply of dofetilide at discharge. CM to confirm availability at discharge.
[2025-05-17 15:16] VITALS: BP 122/76
[2025-05-17 18:49] VITALS: BP 139/80
[2025-05-17 22:26] VITALS: BP 129/74
--- NOTE | 2025-05-18 01:54 | PTCARENOTE ---
Tele remains NSR-Sinus aida, HR in the 50-60s at rest. Pt denies any pain or discomfort. Ambulates self in room w/out difficulty. Call newman within reach, pt can make needs known.
[2025-05-18 04:02] VITALS: BP 137/84
[2025-05-18 07:40] VITALS: BP 150/81
[2025-05-18 07:41] VITALS: BP 150/81
[2025-05-18] MEDS: FLOVENT 44 MCG INHALER 2 PUFF INH (07:43)
[2025-05-18] MEDS: COZAAR 25 MG PO (08:10)
[2025-05-18] MEDS: TOPROL XL 50 MG PO (08:10)
[2025-05-18] MEDS: PROTONIX 40 MG PO (08:10)
[2025-05-18] MEDS: TIKOSYN 250 MCG PO (08:10)
[2025-05-18] MEDS: ZOLOFT 50 MG PO (08:10)
[2025-05-18] MEDS: ELIQUIS 5 MG PO (08:10)
[2025-05-18] MEDS: LIPITOR 80 MG PO (08:10)
[2025-05-18] MEDS: ZYLOPRIM 100 MG PO (08:10)
[2025-05-18] MEDS: LOW STRENGTH ASPIRIN 81 MG PO (08:10)
--- NOTE | 2025-05-18 10:33 | W.PN.CD ---
Today's Communication / Plan
-
- Stable for discharge with Tikosyn dose 250 mcg BID.
Impression / Plan
-
I/P: 69M with oronary artery disease status-post BMS to the proximal RCA and proximal LAD (2010), paroxysmal atrial fibrillation (on Eliquis) status-post previous BETTY/cardioversions (on 02/24/2019, 09/05/2021, & 12/15/2024), ablation (01/19/2025),
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
Primary pad machine offbearer: Dr. Avina
Paroxysmal atrial fibrillation
- s/p AF ablation - PVI - 01/19/25. No significant scar in the LA.
- In sinus rhythm
- Plan is for rhythm control with dofetilide, baseline QT 400 msec, this requires intensive monitoring
- Dofetilide loading per protocol. Now down to 250 mcg BID with stable QTc
- Oral Anticoagulation: Apixaban 5 mg twice daily, he denies missed doses, he denies abnormal bleeding
- [id number]: Score at least 3 (HTN, Vascular disease, age 65-74)
- s/p 6/6 doses of Tikosyn today.
- QTc is acceptable.
- Stable for discharge
CAD
-Stable without chest pain
-Continue medical management with aspirin, atorvastatin, and metoprolol succinate
Essential hypertension
- HCTZ permanently discontinued with the addition of dofetilide
- BP is at target
Hyperlipidemia, continue atorvastatin 80 mg
Asthma, stable without wheeze, no acute exacerbation
JERMAINE on CPAP
Subjective: No CV complaints
Physical Exam
Vital Signs/Labs
Vital Signs
Temp Pulse Resp BP Pulse Ox
97.5 F 61 16 150/81 96
05/18/25 07:40 05/18/25 08:00 05/18/25 07:49 05/18/25 07:41 05/18/25 07:49
05/15/25 08:25
Physical Exam
Constitutional: No acute distress and Comfortable
EENT: Anicteric and Moist mucous membranes
Cardiovascular: Rhythm & rate is regular, Pedal edema is absent and JVD pressure is normal
Respiratory: Respiratory effort normal, Lungs clear to auscul. and Wheeze Absent
GI: Soft, Distention absent, Non tender and Normal bowel sounds
Neuro/Psych: Alert, Oriented, AO x 3 and Motor deficits absent
Data Reviewed
-
Date of Service: May 18, 2025
Medical Decision Making: Reviewed Test Results, Test Interpretation and Review of Case with other Provider
EKG: Tracing Personally Visualized and interpreted
Echo: Report Reviewed by me
Labs: Labs Reviewed by me
Old Records: Reviewed
--- NOTE | 2025-05-18 11:12 | W.DS.TRANS ---
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
-
Discharge Instructions:
Discharge Diagnosis/Procedures Atrial fibrillation with dofetilide initiation,
coronary artery disease, hypertension,
dyslipidemia
Diet 2 Gram Sodium,Low Cholesterol,Low Fat
Activity As tolerated
Driving Restrictions As prior to admission
Bathing Restrictions OK to Shower
Instructions:
Stand-Alone Forms:
Changes to Home Medications: Yes
Discharge Medications:
DC Medications w/original date entered in Shortlist
pantoprazole 40 mg tablet,delayed release 40 mg PO DAILY Gastrointestinal Issue 04/08/18
acetaminophen 500 mg tablet (Tylenol Extra Strength) 1,000 mg PO Q8HPRN PRN pain 02/24/19
aspirin 81 mg tablet,delayed release 81 mg PO DAILY Blood Clot Prevention/Tx 02/24/19
apixaban 5 mg tablet (Eliquis) 5 mg PO BID Blood Clot Prevention/Tx 09/04/21
losartan 25 mg tablet 25 mg PO DAILY Blood Pressure 09/04/21
valacyclovir 1 gram tablet 1,000 mg PO [id number] PRN cold sores 09/04/21
tobramycin-dexamethasone 0.3 %-0.1 % eye ointment (TobraDex) 1 applic OPHTHALMIC PRN PRN eyes 09/05/21
albuterol sulfate 90 mcg/actuation aerosol inhaler 2 puff inhalation 6XD PRN SOB 01/19/25
allopurinol 100 mg tablet 100 mg PO DAILY 01/19/25
atorvastatin 80 mg tablet 80 mg PO DAILY High Cholesterol 01/19/25
budesonide 180 mcg/actuation breath activated powder inhaler (Pulmicort Flexhaler) 1 inh inhalation BID Asthma 01/19/25
daecggu-tevnamkrcq-VUX-caffeine 30 mg-50 mg-325 mg-40 mg capsule 1 cap PO Q4H PRN migraine 01/19/25
metoprolol succinate 50 mg tablet,extended release 24 hr 50 mg PO DAILY Blood Pressure 01/19/25
sertraline 50 mg tablet 50 mg PO DAILY Mental Health/Anxiety 01/19/25
dofetilide 250 mcg capsule 250 mcg PO Q12 #60 caps 05/18/25
Home Medication Changes
dofetilide started, HCTZ stopped
Pending Results: No
[2025-05-18 11:24] VITALS: BP 139/82
--- NOTE | 2025-05-18 12:05 | PTCARENOTE ---
IV and tele removed. Discharge instructions reviewed w/ pt and verbalizes understanding. Belongings collected and sent home w/ pt. Escorted via WC and staff assist to home.
== END 2025-05-18 12:06 | disposition home or self-care (01) | DRG 310 ==
LOC: IVU 07:58
PROVIDERS: Nurse Practitioner Gerontology; ADMITTING PHYSICIAN Internal Medicine
DX: I48.0 Paroxysmal atrial fibrillation (principal); I25.10 Atherosclerotic heart disease of native coronary artery without angina pectoris; I10 Essential (primary) hypertension; E78.5 Hyperlipidemia, unspecified; J45.909 Unspecified asthma, uncomplicated; G47.33 Obstructive sleep apnea (adult) (pediatric); Z95.5 Presence of coronary angioplasty implant and graft; Z79.82 Long term (current) use of aspirin; Z79.01 Long term (current) use of anticoagulants; Z79.899 Other long term (current) drug therapy
CPT/HCPCS: 80048; 93005; 94640

== ENCOUNTER 2025-06-25 06:30 | Emergency (ER) | payer OTHER, SELFPAY ==
[2025-06-25 06:38] VITALS: BP 136/88
[2025-06-25 07:00] VITALS: BMI 33.3
--- NOTE | 2025-06-25 07:42 | ED.SKININJ ---
HPI-Injury
General
Chief Complaint: Ear Problem
Source: patient
Exam Limitations: none
Time Seen by Provider: 06/25/25 07:35
History of Present Illness-Injury
Initial Injury comments:
69-year-old male on Eliquis last took it last night presents with continued bleeding from the left ear. After taking a shower last night he used a Q-tip and noticed blood on the Q-tip and it continued to bleed throughout the night. He did not take
his Eliquis this morning. He states since arriving here the bleeding did slow down. He denies any pain or difficulty hearing. No other complaints
Past History
Past History
ED Past Medical History: Arrthythmia (A-fib RVR), Asthma, CAD (s/p PTCA with stent in 2010), HTN, Hypercholesterolemia and Other (Migraine headaches)
ED Past Surgical History: Cardiac (PTCA with stent 2010)
Social History
Tobacco: Non-smoker
Alcohol: Occasional
Personal:
Living: with family
Employment: Employed
Family History
Family History: Other (Noncontributory)
Phy Exam
Physical Exam
Physical Exam:
General: Well-appearing male no acute respiratory distress
HEENT: Normocephalic atraumatic left ear canal with abrasion to the posterior aspect of the canal. There is old blood in the canal but no active bleeding
Neck is supple
Course
Vital Signs
Initial and Last Documented VS:
Initial Vital Signs
Temp Pulse Resp BP Pulse Ox
97 F 60 20 136/88 94
06/25/25 06:38 06/25/25 06:38 06/25/25 06:38 06/25/25 06:38 06/25/25 06:38
Last Documented Vital Signs
Temp Pulse Resp BP Pulse Ox
97 F 58 16 157/86 95
06/25/25 06:38 06/25/25 07:54 06/25/25 07:54 06/25/25 07:54 06/25/25 07:54
MDM/Problems Addressed
Differential Diagnosis Includes:
Bleeding from left ear canal likely from self-induced abrasion from using it. At the current time no active bleeding.
*Pulse Oximetry
SaO2: 94
Oxygen Mode of Delivery: Room air
Patient hypoxic: no
*Critical Care Note
Total Time (30-74mins, 75-104mins- exclusive of procedures): Not Applicable
Update Note
Update Note:
Patient reexamined still no further bleeding. Recommend local wound care. Stable for discharge
ED Attending Note
-
Portions of this chart may have been created with voice recognition software.� Occasional wrong word or��sound alike� substitutions may have occurred due to the inherent limitations of voice recognition software.
Discharge Plan
Departure
Patient Disposition: Home (Routine Discharge)
Date of Disposition: 06/25/25
Time of Disposition: 08:24
Patient with high blood pressure during this ER visit?: No
Discharge Problem:
Abrasion of ear canal
Prescriptions:
No Action
pantoprazole 40 MG tablet,delayed release (DR/EC)
40 mg PO DAILY
aspirin 81 MG tablet,delayed release (DR/EC)
81 mg PO DAILY
acetaminophen [Tylenol Extra Strength] 500 MG tablet
1,000 mg PO Q8HPRN PRN (Reason: pain)
valacyclovir 1,000 MG tablet
1,000 mg PO [id number] PRN (Reason: cold sores)
losartan 25 MG tablet
25 mg PO DAILY
Eliquis 5 MG tablet
5 mg PO BID
TobraDex 1 APPLIC ointment
1 applic OPHTHALMIC PRN PRN (Reason: eyes)
atorvastatin 80 mg Tablet
80 mg PO DAILY
metoprolol succinate 50 mg Tablet Extended Release 24 Hr
50 mg PO DAILY
allopurinol 100 mg Tablet
100 mg PO DAILY
albuterol sulfate 90 mcg/actuation Hfa Aerosol Inhaler
2 puff INHALATION 6XD PRN (Reason: SOB)
sertraline 50 mg Tablet
50 mg PO DAILY
Pulmicort Flexhaler 180 mcg/actuation Aerosol Powdr Breath Activated
1 inh INHALATION BID
dvekpul-hdgdtgtdqy-WZD-caff 12-70-795-40 mg Capsule
1 cap PO Q4H PRN (Reason: migraine)
dofetilide 250 mcg Capsule
250 mcg PO Q12 Qty: 60 3RF
Referrals:
Yury Lindo MD [Family Provider, Family Practice]
Activity Restrictions/Additional Instructions:
You may irrigate gently with soapy water. Return here if needed otherwise
Interventions
Interventions:
*Risk Screen - Suicide Last Done: 06/25/25 06:38
*General Assessment Last Done: 06/25/25 07:00
*Neglect/Abuse Screening Last Done: 06/25/25 06:38
*ED- Fall Risk Assessment Last Done: 06/25/25 07:00
Discharge Date and Time
Print Language: BULGARIAN
[2025-06-25 07:54] VITALS: BP 157/86
== END 2025-06-25 08:39 | disposition home or self-care (01) ==
LOC: EMR 06:30
PROVIDERS: EMERGENCY PHYSICIAN Emergency Medicine; FAMILY PHYSICIAN Family Medicine
DX: S00.419A Abrasion of unspecified ear, initial encounter (principal); X58.XXXA Exposure to other specified factors, initial encounter; Z79.01 Long term (current) use of anticoagulants; I48.91 Unspecified atrial fibrillation; J45.909 Unspecified asthma, uncomplicated; I25.10 Atherosclerotic heart disease of native coronary artery without angina pectoris; I10 Essential (primary) hypertension; E78.00 Pure hypercholesterolemia, unspecified; Z95.5 Presence of coronary angioplasty implant and graft
CPT/HCPCS: 99282

== ENCOUNTER → 2025-07-26 14:33 | Outpatient (REF) | payer OTHER, SELFPAY | LOC: EMG 14:33 | PROVIDERS: ATTENDING PHYSICIAN Student in an Organized Health Care Education/Training Program; FAMILY PHYSICIAN Family Medicine | DX: R20.0 Anesthesia of skin (principal) | CPT/HCPCS: 95886; 95911 ==

== ENCOUNTER 2025-09-06 06:31 | Day surgery (SDC) | payer OTHER, SELFPAY ==
[2025-09-06] VITALS (10 sets, daily range): BP systolic 124–149; BP diastolic 61–85; BMI 33.9
[2025-09-06] MEDS: CELEBREX 200 MG PO (11:56)
[2025-09-06] MEDS: TYLENOL 1000 MG PO (11:57)
[2025-09-06] MEDS: NORMOSOL-R/PLASMALYTE-A 1000 IV (12:09)
--- NOTE | 2025-09-09 22:31 | OR.RPT ---
Operative Report
Operative Report
OPERATIVE REPORT
Patient:�Rai Thomas
Date of Surgery:�09/06/2025
Surgeon:�Wallace Wilhelm DPM
Assistants:�Wallace Young DPM
Preoperative Diagnoses:
Left tarsal tunnel syndrome
Left posterior ankle joint ganglion cyst
Left plantar fasciitis
Postoperative Diagnoses:
Same as preoperative
Procedures Performed:
Left tarsal tunnel release (CPT�47509)
Excision of large ganglion cyst arising from posterior ankle joint and encasing tibial nerve (CPT�02340)
Partial plantar fasciotomy (CPT�80458)
Anesthesia:�General anesthesia with regional block
Hemostasis: Thigh tourniquet which remained inflated at 300mmHg for the majority of the procedure
Estimated Blood Loss:�Minimal
Specimens:�Ganglion cyst
Complications:�None
Indications for Procedure
The patient is a 70-year-old male with longstanding left medial hindfoot and heel pain, numbness, and tingling consistent with tarsal tunnel syndrome and plantar fasciitis. MRI demonstrated a�large multilobulated ganglion cyst originating from the
posterior ankle joint and imposing mass effect upon the tibial nerve�within the tarsal tunnel. The patient also had chronic plantar fasciitis refractory to conservative measures.
Nonoperative management�including rest, NSAIDs, orthotics, immobilization, and physical therapy�failed to provide relief. Surgical intervention was recommended. Risks, benefits, complications, and alternatives were discussed, and informed consent
was obtained.
Procedure in Detail
The patient was brought to the operating room and placed supine on the table. After induction of general anesthesia, a well-padded thigh tourniquet was applied. The left lower extremity was prepped and draped in sterile fashion. The tourniquet was
inflated after limb exsanguination.
Tarsal Tunnel Release & Ganglion Cyst Excision
A curvilinear incision was made posterior and inferior to the medial malleolus along the course of the tibial nerve. Blunt dissection was carried down through subcutaneous tissue, taking care to protect all neurovascular structures.
The flexor retinaculum was identified and incised longitudinally from proximal to distal, fully decompressing the tarsal tunnel. The tibial nerve and branches were carefully mobilized.
A�large ganglion cyst�was encountered deep within the tunnel. The cyst clearly originated from the posterior ankle joint capsule and wrapped around the tibial nerve, displacing it but not infiltrating the nerve substance. The cyst was dissected
circumferentially with careful neurolysis performed around the tibial nerve and its divisions. The cyst was excised completely at its stalk near the posterior ankle joint. The cyst was sent to pathology.
The nerve was inspected along its course and confirmed to be free of compression, adhesions, or residual mass. Hemostasis was achieved.
The tourniquet was deflated at this point�to ensure no vascular compromise following neurolysis and cyst excision.
The posterior tibial artery was found to be completely intact with a strong palpable pulse, and there was no evidence of arterial or venous injury. Adequate perfusion to the foot was confirmed.
Partial Plantar Fasciotomy
Attention was then turned distally to address recalcitrant plantar fasciitis. The medial ankle incision was extending distally to the plantar foot and the medial band of the plantar fascia was identified.
A partial fasciotomy of the medial band�was performed using a combination of sharp dissection and tenotomy scissors. The lateral band was intentionally preserved�to maintain arch stability. Adequate release was confirmed, and the wound was irrigated
thoroughly.
All operative sites were irrigated with sterile saline. Hemostasis was confirmed. The flexor retinaculum was not closed intentionally to prevent re-adhesion and compression of the tibial nerve. The deep tissue was approximated with 2-0 vicryl,
subcutaneous tissues with 3-0 vicryl, and the skin was closed with nylon sutures.
A sterile dressing was applied, followed by a well-padded posterior splint positioning the foot in neutral alignment.
The patient tolerated the procedure well and was transferred to PACU in stable condition.
Postoperative Plan
Non�weight-bearing to the left lower extremity for the first 2 weeks
Elevation and icing for 48�72 hours
Transition to CAM boot after initial follow-up depending on wound status
Gradual weight bearing once healing is satisfactory and pain allows
Physical therapy to begin approximately 4�6 weeks post-op
Follow-up in 10�14 days for wound check and suture removal
== END 2025-09-06 17:50 | disposition home or self-care (01) ==
LOC: SDS 06:31
PROVIDERS: ATTENDING PHYSICIAN Student in an Organized Health Care Education/Training Program
DX: G57.52 Tarsal tunnel syndrome, left lower limb (principal); M67.40 Ganglion, unspecified site; M72.2 Plantar fascial fibromatosis
CPT/HCPCS: 28060; 28035; 28041; 88304